=== PATIENT | female | born 1950 | race Caucasian/White ===

== ENCOUNTER 2019-03-20 18:44 | Emergency (ER) | payer BC ==
[~2019-03-20] VITALS: Ht 157.5 cm; Wt 74.8 kg
--- NOTE | 2019-03-20 18:51 | ED.ADGEN ---
Past History Past Medical History: UTI Adult General Chief Complaint Chief Complaint ".. I been having pain with urination... It got to be another UTI.. I maybe waited to long .. to come. in... It really hurts now with urination..." HPI HPI Patient is a 68 year old female who presents with above hx and complaints of painful urination. She states she's had multiple urinary tract infections in the past. Sometimes she is able to clearly urinary tract infection by increasing fluid intake and vitamin C drinks. Patient denies any specific ill contacts. Patient denies any travel. Denies any history of immunosuppression. Patient denies any vaginal discharge. Patient past has followed with Dr. Wyatt. Patient currently following with Dr. Rodgers. Dysuria is been persistent since last . Review of Systems Review of Systems Constitutional: Denies fever or chills [] Eyes: Denies change in visual acuity, redness, or eye pain [] HENT: Denies nasal congestion or sore throat [] Respiratory: Denies cough or shortness of breath [] Cardiovascular: No additional information not addressed in HPI [] GI: Denies abdominal pain, nausea, vomiting, bloody stools or diarrhea [] : Complaints of dysuria Musculoskeletal: Denies back pain or joint pain [] Integument: Denies rash or skin lesions [] Neurologic: Denies headache, focal weakness or sensory changes [] Endocrine: Denies polyuria or polydipsia [] All other systems were reviewed and found to be within normal limits, except as documented in this note. Family History Family History Noncontributory Current Medications Current Medications Current Medications Medications (Trade) Dose Ordered Sig/Aleksandra Start Time Stop Time Status Last Admin Dose Admin Ceftriaxone Sodium (Rocephin Im) 1 gm 1X ONCE 03/20/19 20:30 03/20/19 20:31 DC 03/20/19 20:31 1 GM Levofloxacin (Levaquin) 500 mg 1X ONCE 03/20/19 20:45 03/20/19 20:45 DC 03/20/19 20:31 500 MG Phenazopyridine HCl (Pyridium) 200 mg 1X ONCE 03/20/19 19:15 03/20/19 19:16 DC 03/20/19 19:21 200 MG Allergies Allergies Allergies Coded Allergies Type Severity Reaction Last Updated Verified No Known Drug Allergies 03/20/19 No Physical Exam Physical Exam Constitutional: Moderately acute distress, non-toxic appearance. [] HENT: Normocephalic, atraumatic, bilateral external ears normal, oropharynx moist, no oral exudates, nose normal. [] Eyes: PERRLA, EOMI, conjunctiva normal, no discharge. [] Neck: Normal range of motion, no tenderness, supple, no stridor. [] Cardiovascular:Heart rate regular rhythm, no murmur [] Lungs & Thorax: Bilateral breath sounds clear to auscultation [] Abdomen: Bowel sounds normal, soft, no tenderness, no masses, no pulsatile masses. [] Some super pubic tenderness Skin: Warm, dry, no erythema, no rash. [] Back: No tenderness, no CVA tenderness. [] Extremities: No tenderness, no cyanosis, no clubbing, ROM intact, no edema. [] Mild arthritic changes Neurologic: Alert and oriented X 3, normal motor function, normal sensory function, no focal deficits noted. [] Psychologic: Affect anxious, judgement normal, mood normal. [] Current Patient Data Vital Signs Vital Signs Date Time Temp Pulse Resp B/P (MAP) Pulse Ox O2 Delivery O2 Flow Rate FiO2 03/20/19 19:02 97.4 62 18 100 Room Air Lab Results Laboratory Tests Test 03/20/19 19:00 Urine Collection Type Unknown Urine Color Yellow Urine Clarity Hazy Urine pH 5.5 Urine Specific [place] >=1.030 Urine Protein 100 mg/dl (NEG-TRACE) Urine Glucose (UA) Neg mg/dL (NEG) Urine Ketones (Stick) Neg mg/dL (NEG) Urine Blood Large (NEG) Urine Nitrite Pos (NEG) Urine Bilirubin Neg (NEG) Urine Urobilinogen Dipstick 1 mg/dL (0.2 mg/dL) Urine Leukocyte Esterase Small (NEG) Urine RBC 11-20 /HPF (0-2) Urine WBC 5-10 /HPF (0-4) Urine Squamous Epithelial Cells Mod /LPF Urine Bacteria Mod /HPF (0-FEW) EKG EKG [] Radiology/Procedures Radiology/Procedures [] Course & Med Decision Making Course & Med Decision Making Pertinent Labs and Imaging studies reviewed. (See chart for details) Push vitamin C drinks. Tylenol and ibuprofen for discomfort. Take Levaquin 500 mg a day for 5 days. Must follow-up cultures. Return if any concerns. [] Final Impression Final Impression 1. Urinary tract infection[] Dragon Disclaimer Dragon Disclaimer This electronic medical record was generated, in whole or in part, using a voice recognition dictation system. Discharge Summary Visit Information Final Diagnosis Problems Medical Problems: (1) Urinary tract infection Status: Acute Brief Hospital Course Allergies Allergies Coded Allergies Type Severity Reaction Last Updated Verified No Known Drug Allergies 03/20/19 No Vital Signs Vital Signs Date Time Temp Pulse Resp B/P (MAP) Pulse Ox O2 Delivery O2 Flow Rate FiO2 03/20/19 19:02 97.4 62 18 100 Room Air Lab Results Laboratory Tests Test 03/20/19 19:00 Urine Collection Type Unknown Urine Color Yellow Urine Clarity Hazy Urine pH 5.5 Urine Specific [place] >=1.030 Urine Protein 100 mg/dl (NEG-TRACE) Urine Glucose (UA) Neg mg/dL (NEG) Urine Ketones (Stick) Neg mg/dL (NEG) Urine Blood Large (NEG) Urine Nitrite Pos (NEG) Urine Bilirubin Neg (NEG) Urine Urobilinogen Dipstick 1 mg/dL (0.2 mg/dL) Urine Leukocyte Esterase Small (NEG) Urine RBC 11-20 /HPF (0-2) Urine WBC 5-10 /HPF (0-4) Urine Squamous Epithelial Cells Mod /LPF Urine Bacteria Mod /HPF (0-FEW) Brief Hospital Course Ms. Phan is a 68 old female who presented with UTI Discharge Information Condition at Discharge: Improved, Stable Disposition/Orders: D/C to Home Dischare Medications Current Medications Phenazopyridine HCl (Pyridium) 200 mg 1X ONCE PO Last administered on 03/20/19at 19:21; Admin Dose 200 MG; Start 03/20/19 at 19:15; Stop 03/20/19 at 19:16; Status DC Ceftriaxone Sodium (Rocephin Im) 1 gm 1X ONCE IM Last administered on 03/20/19at 20:31; Admin Dose 1 GM; Start 03/20/19 at 20:30; Stop 03/20/19 at 20:31; Status DC Levofloxacin (Levaquin) 500 mg 1X ONCE PO Last administered on 03/20/19at 20:31; Admin Dose 500 MG; Start 03/20/19 at 20:45; Stop 03/20/19 at 20:45; Status DC Active Scripts Active Levaquin (Levofloxacin) 500 Mg Tablet 500 Mg PO DAILY 5 Days Sparkle Disclaimer This chart was dictated in whole or in part using Voice Recognition software in a busy, high-work load, and often noisy Emergency Department environment. It may contain unintended and wholly unrecognized errors or omissions. JOANA LALA MD Mar 20, 2019 18:51
[2019-03-20 19:02] VITALS: BP 160/92
[2019-03-20] MEDS ORDERED: PHENAZOPYRIDINE 200 MG TABLET. PO ONE (19:15)
[2019-03-20 19:35] LABS: COLOR,URINE YELLOW
[2019-03-20 19:36] LABS: BACTERIA,URINE MOD /HPF (0-FEW); BILIRUBIN,URINE NEG (NEG); CLARITY,URINE HAZY; GLUCOSE,URINE NEG (NEG); NITRITE,URINE POS (NEG); SQUAMOUS EPITHELIAL CELL,UR MOD /LPF; UROBILINOGEN,URINE 1 mg/dL (0.2 mg/dL)
[2019-03-20] MEDS ORDERED: LEVO500T59 PO (20:27)
[2019-03-20] MEDS ORDERED: cefTRIAXone IM 1 GM VIAL IM ONE (20:30)
[2019-03-20] MEDS ORDERED: levoFLOXacin 500 MG TABLET PO ONE (20:45)
== END 2019-03-20 20:40 | disposition home or self-care (01) ==
LOC: ER 18:44
DX: N39.0 Urinary tract infection, site not specified (principal); Z87.440 Personal history of urinary (tract) infections
CPT/HCPCS: 81001; 87086; 96372; 99284; J0696